=== PATIENT | male | born 1995 | race Caucasian/White ===

== ENCOUNTER 2016-10-16 06:41 | Inpatient (IN) | payer BC ==
[2016-10-16 08:33] LABS: Hematocrit 47 % (42-52); Hemoglobin 15.7 g/dl (14.0-18.0); Mean Corpuscular HGB Conc 33 g/dl (31-36); Mean Corpuscular Hemoglobin 28 pg (27-31); Mean Corpuscular Volume 86 fL (80-94); Mean Platelet Volume 9 um3 (7.4-10.4); Red Blood Count 5.53 10^6/ul (4.0-5.4); Red Cell Distribution Width 14 % (10.5-15); White Blood Count 7.9 10^3/ul (3.5-10.8)
[2016-10-16 08:53] LABS: ALT 18 U/L (7-52); AST 21 U/L (13-39); Albumin 4.7 g/dL (3.2-5.2); Alkaline Phosphatase 45 U/L (34-104); Anion Gap 10 mmol/L (2-11); BUN/Creatinine Ratio 18.2 (8-20); Blood Urea Nitrogen 14 mg/dL (6-24); CO2 Carbon Dioxide 24 mmol/L (22-32); Calcium 9.6 mg/dL (8.6-10.3); Chloride 101 mmol/L (101-111); EGFR African American 165.6 (>60); EGFR Non-African American 128.8 (>60); Globulin 2.7 g/dL (2-4); Glucose 125 mg/dL (70-100); Potassium 3.7 mmol/L (3.5-5.0); Sodium 135 mmol/L (133-145); Total Protein 7.4 g/dL (6.4-8.9)
[2016-10-16 08:56] LABS: Acetaminophen < 15 mcg/mL; Alcohol < 10 mg/dL (<10); Salicylate < 2.50 mg/dL (<30)
[2016-10-16 08:57] LABS: Benzodiazepine Urine Screen None Detected (None Detect); Urine Bacteria Absent (Absent); Urine Bilirubin Negative (Negative); Urine Glucose Negative (Negative); Urine Nitrite Negative (Negative)
[2016-10-16 09:03] LABS: TSH (Thyroid Stimulating Horm) 1.08 mcIU/mL (0.34-5.60)
[2016-10-16] MEDS ORDERED: Al Hydrox/Mg Hydrox/Simet LIQ* 30 ML UDC PO PRN (10:37)
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
[2016-10-16] MEDS ORDERED: diPHENhydraMINE PO* 50 MG ONE (18:08)
[2016-10-16] MEDS ORDERED: Haloperidol TAB* 5 MG ONE (18:08)
[2016-10-16] MEDS: Nicotine Inhaler* 10 MG AMP INH PRN (19:15)
[2016-10-16] MEDS ORDERED: Mouth Piece, Nicotine* 1 EACH CARTRIDGE ONE (19:15)
[2016-10-16] MEDS ORDERED: traZODone TAB* 50 MG TAB PO SCH (21:00)
[2016-10-17] MEDS: Acetaminophen TAB* 325 MG PO PRN (06:01)
[2016-10-17] MEDS: Vitamin THERAPEUTIC TAB PO SCH (09:23)
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
[2016-10-17] MEDS: chlorproMAZINE TAB* 100 MG PO PRN ×2 (14:04→19:54)
[2016-10-17] MEDS ORDERED: QUEtiapine TAB* 100 MG PO SCH (21:00)
[2016-10-17] MEDS ORDERED: diPHENhydraMINE PO* 50 MG PO PRN (22:52)
[2016-10-18] MEDS: chlorproMAZINE TAB* 100 MG PO PRN (00:15)
[2016-10-18] MEDS: Vitamin THERAPEUTIC TAB PO SCH (09:44)
[2016-10-18] MEDS: Nicotine Inhaler* 10 MG AMP INH PRN ×5 (10:48→20:59)
--- NOTE | 2016-10-18 11:49 | PN ---
Subjective - Subjective Service Type: 66982 Hosp care 25 min moderate complexity Subjective: Gene acknowledges manic symptoms. He agrees with idea of ongoing care at home at [facility], including inpatient stay there. He protests he has to continue admitted here for the time being, but reluctantly agrees to it. He refuses typical Bipolar treatments, but requests Thorazine (reasonably) - citing its calming effect. I reviewed its profile with him. We met with his mother, and provided her with an update on his status and plan. She supported the idea that he would, siri, go to [place] for care. She said he is argumentative by nature, but recognized that his symptoms this week were unprecedented and that he has been impaired. Objective - Appearance Appearance: Thin Framed Hygiene: Normal Grooming: Fairly Well Kept - Behavior Psychomotor Activities: Abnormal-Increased - Attitude and Relatedness Attitude and Relatedness: Minimally Cooperative Eye Contact: Good - Speech Quality: Unpressured Latencies: Short Quantity: Appropriate - Mood Patient's Decription of Mood: "Upset" - Affect Observed Affect: Labile - and expansive Affect Consistent with: Dysphoria - Thought Process Patient's Thought Process: Over Inclusive Thought Content: No Passive Wish, No Suicidal Planning, No Homicidal Ideation, No Paranoid Ideation - Sensorium Experiencing Hallucinations: No, Sensorium is Clear - Level of Consciousness Level of Consciousness: Alert - Impulse Control Impulse Control: Tenuous - Insight and Judgement Insight and Judgement: Poor Assessment - Assessment Merits Inpatient Hospitalization: For Immediate Safety, For Stabilization, To Initiate Treatment, For Ongoing Evaluation, Consolidate Improvements, For Discharge Planning, Pending Safe DC Plan Inpatient DSM-IV Dx: Bipolar disorder, mre manic. Cannabis use disorder. r.o. PTSD Clinical Impression: First psychiatric hospitalization for a 21-year-old male with a history of substance use disorder, previous evaluation with ADHD, who presents meeting criteria for bipolar manic episode, including extreme decrease in his amount of sleep, increased goal directed behavior, grandiosity, pressured speech, flight of ideas and financial indiscretion. This is in the setting of heavy levels of cannabis use and possible recent use of benzodiazepine and stimulant. Continues symptomatic and impaired/off baseline. May be making some progress with milder with manic affective features - slept 5 + hours last night. Continues with agitation/irritability, copious speech, over-inclusiveness. Medication management is with Thorazine - not typical moy treatment but probably very helpful and it is all Gene is interested in taking. Reasonable to plan for ongoing care at [facility] if pt. is accepted. Will not be an interstate transfer, rather a discharge-intake, so he will have to be stabilized and appropriate for ambulatory status. Assuming he makes more clinical progress, and consolidates his gains over a day or so, and has a followup plan in place, would anticipate discharge early next week. Plan - Plan Treatment Plan: Name: GENE MCCONNELL Birthdate: 1995 [id number] Continued Medication Management: Start Medication Medications: Current Medications Acetaminophen (Tylenol Tab*) 650 mg PO Q4H PRN PRN Reason: for pain; or Temp >101 F Last Admin: 10/17/16 06:01 Dose: 650 mg Al Hydrox/Mg Hydrox/Simethicone (Maalox Plus*) 30 ml PO Q4H PRN PRN Reason: INDIGESTION Chlorpromazine HCl (Thorazine Tab*) 100 mg PO Q3H PRN PRN Reason: AGITATION Last Admin: 10/18/16 00:15 Dose: 100 mg Diphenhydramine HCl (Benadryl Po*) 50 mg PO BEDTIME PRN PRN Reason: SLEEP Last Admin: 10/18/16 00:16 Dose: 50 mg Multivitamins (Theragran Tab*) 1 tab PO DAILY [facility] Last Admin: 10/18/16 09:44 Dose: Not Given Nicotine (Nicotine Inhaler*) 10 mg INH Q2H PRN PRN Reason: CRAVING Last Admin: 10/18/16 10:48 Dose: 10 mg Quetiapine Fumarate (Seroquel Tab*) 100 mg PO BEDTIME IGNACIA Last Admin: 10/17/16 19:55 Dose: Not Given - Discharge Plan Discharge Plan: Outpatient Follow Up
[2016-10-18] MEDS: chlorproMAZINE TAB* 50 MG PO SCH (21:26)
[2016-10-19] MEDS: Vitamin THERAPEUTIC TAB PO SCH (07:26)
[2016-10-19] MEDS: Nicotine Inhaler* 10 MG AMP INH PRN ×3 (09:10→16:48)
[2016-10-19] MEDS: Acetaminophen TAB* 325 MG PO PRN (15:35)
[2016-10-19] MEDS: chlorproMAZINE TAB* 50 MG PO SCH (21:25)
[2016-10-20] MEDS: chlorproMAZINE TAB* 50 MG PO PRN ×3 (01:36→19:14)
[2016-10-20] MEDS: Vitamin THERAPEUTIC TAB PO SCH (09:17)
[2016-10-20] MEDS: Acetaminophen TAB* 325 MG PO PRN (11:41)
[2016-10-20] MEDS: Nicotine Inhaler* 10 MG AMP INH PRN ×2 (11:41→15:49)
--- NOTE | 2016-10-20 13:05 | PN ---
Subjective - Subjective Subjective: I had the opportunity to visit Mr. Phelan today on follow-up. Today he discussed the circumstances leading up to his admission here at [facility]. He also discussed his goal of being discharged to the care of his mother so that he can continue treatment at the [facility]. He is reporting good sleep, however, was concerned that he had woken up at around 1:30 am with severe sweating. He states that this has happened before, but not consistently. Today, Mr. Phelan also asked if he could have access to the comfort room with computer privileges. Case reviewed with Dr. Jenkins. Objective - Appearance Dysmorphic Features: No Hygiene: Normal Grooming: Well Kept - Behavior Psychomotor Activities: Normal Exhibits Abnormal Movement: Yes - Attitude and Relatedness Attitude and Relatedness: Cooperative Eye Contact: Good - Speech Quality: Unpressured Latencies: Normal Quantity: Appropriate - Mood Patient's Decription of Mood: "Okay" - Affect Observed Affect: Good Affect Consistent with: Euthymia - Thought Process Patient's Thought Process: Coherent Thought Content: No Passive Wish, No Suicidal Planning, No Homicidal Ideation, No Paranoid Ideation - Sensorium Experiencing Hallucinations: No, Sensorium is Clear - Level of Consciousness Level of Consciousness: Alert Orientation: Yes Intact - Impulse Control Impulse Control: Intact - Insight and Judgement Insight and Judgement: Good - Today he acknowledged that his symptoms resulted from bipolar DO (untreated), and acknowledged "if this is my diagnosis, so be it , I will have to deal with it." - Group Participation Particating in Group Activities: Yes Assessment - Assessment Inpatient DSM-IV Dx: Bipolar disorder, mre manic. Cannabis use disorder. r.o. PTSD Clinical Impression: Mr. Phelan is a 21 year old male who apparently continues to improve with the current psychotropic regimen. He articulates a desire to continue treatment at the [facility]. Plan - Plan Treatment Plan: Name: GENE PHELAN Birthdate: 1995 [id number] Medications: Current Medications Acetaminophen (Tylenol Tab*) 650 mg PO Q4H PRN PRN Reason: for pain; or Temp >101 F Last Admin: 10/20/16 11:41 Dose: 650 mg Al Hydrox/Mg Hydrox/Simethicone (Maalox Plus*) 30 ml PO Q4H PRN PRN Reason: INDIGESTION Last Admin: 10/19/16 07:26 Dose: 30 ml Chlorpromazine HCl (Thorazine Tab*) 50 mg PO Q3H PRN PRN Reason: AGITATION Last Admin: 10/20/16 10:47 Dose: 50 mg Chlorpromazine HCl (Thorazine Tab*) 150 mg PO BEDTIME IGNACIA Last Admin: 10/19/16 21:25 Dose: 150 mg Multivitamins (Theragran Tab*) 1 tab PO DAILY [facility] Last Admin: 10/20/16 09:17 Dose: Not Given Nicotine (Nicotine Inhaler*) 10 mg INH Q2H PRN PRN Reason: CRAVING Last Admin: 10/20/16 11:41 Dose: 10 mg
[2016-10-20] MEDS: chlorproMAZINE TAB* 50 MG PO SCH (20:52)
[2016-10-21] MEDS: Acetaminophen TAB* 325 MG PO PRN (08:43)
[2016-10-21] MEDS: Vitamin THERAPEUTIC TAB PO SCH (08:43)
--- NOTE | 2016-10-21 09:49 | DS ---
Subjective - Subjective Service Types: [id number] [facility] Day Mgmt simple under 30 min Discharge Date: 10/21/16 Subjective: Reggie remained interested in release from the unit. He denies setbacks, reports "Great sleep", recognizes he was "manic" last week and estimates duration of moy was 7 days. He notes feeling "much calmer" and "in control" of his thoughts. He expressed appreciation for the intervention. We discussed medication (he opts to continue Thorazine) and aftercare (remains interested in going to [facility]. I advised him on symptoms to watch for. He has had tachycardia. Reggie reported that tachycardia has been present previously, and that he saw a [facility] [employer] [facility] in [place] this spring, had EKG and evaluation and the was told he did not have a problem. He declined an EKG. Objective - Appearance Appearance: Thin Framed Hygiene: Normal Grooming: Well Kept - Behavior Psychomotor Activities: Normal - Attitude and Relatedness Attitude and Relatedness: Appropriate Eye Contact: Good - Speech Quality: Unpressured Latencies: Normal Quantity: Appropriate - Mood Patient's Decription of Mood: "Good" - Affect Observed Affect: Tense Affect Consistent with: Euthymia - Thought Process Patient's Thought Process: Coherent, Goal Directed Thought Content: No Passive Wish, No Suicidal Planning, No Homicidal Ideation, No Paranoid Ideation - Sensorium Experiencing Hallucinations: No, Sensorium is Clear - Level of Consciousness Level of Consciousness: Alert - Impulse Control Impulse Control: Intact - Insight and Judgement Insight and Judgement: Good Treatment Course & Assessment Clinical Course & Impression: First psychiatric hospitalization for a 21-year-old male with a history of substance use disorder, previous evaluation with ADHD, who presents meeting criteria for bipolar manic episode, including extreme decrease in his amount of sleep, increased goal directed behavior, grandiosity, pressured speech, flight of ideas and financial indiscretion. This is in the setting of heavy levels of cannabis use and possible recent use of benzodiazepine and stimulant. 10/21/16: Clear for release. Reggie had substantial clinical improvement. Manic symptoms were progressively milder. His sleep recovered, with 5-6 hrs+ per night. He demonstrated progressive reduction in agitation/irritability, and full correction of pressured speech, disordered thinking, and grandiosity. Acute impairment is corrected. Medication management is with Thorazine - he refused typical moy treatments but found this helpful for agitation and insomnia. He had tachycardia, with HR ranging from 93-165 when measured. He reported it was subacute/chronic, and subject to a reassuring Cardiology evaluation in earlier 2017 (Dr. Morales, [facility]). No action is currently needed. Based on progress it is appropriate to release him on his request. Risk concern centered on his impairment and activating symptoms, and the potential for harm on that basis. The acute impairment is corrected and symptoms are reduced and risk is assessed as acceptable for outpatient status. Based on his history and conditions, Reggie may be at risk for future impairing mood episodes and therefore at elevated chronic risk for suicide and also violence. Clear for Discharge: Adequate Clinical Respons, Acceptable Safety Profile Inpatient DSM-IV Dx: Bipolar disorder, mre manic. Cannabis use disorder. r.o. PTSD Discharge Planning - Discharge Planning Discharge Plan: Outpatient Follow Up Outpatient Program: [facility] Recommendations for Continuing Care: Medication Management, Psychotherapy, Substance Abuse Counseling Medications: Current Medications Chlorpromazine HCl (Thorazine Tab*) 150 mg PO BEDTIME IGNACIA Last Admin: 10/20/16 20:52 Dose: 150 mg Nicotine (Nicotine Inhaler*) 10 mg INH Q2H PRN PRN Reason: CRAVING Last Admin: 10/20/16 15:49 Dose: 10 mg Discharge Planning: Prescriptions provided for discharge [x] Yes [x] No Follow up care details as per social work arrangements. Patient response to discharge plan: [x] eager for discharge [] agreeable with discharge plan [] ambivalent about discharge [] disagrees with discharge today
[2016-10-21] MEDS: Nicotine Inhaler* 10 MG AMP INH PRN (10:13)
[2016-10-21 10:31] VITALS: BP 147/67
== END 2016-10-21 11:15 | disposition home or self-care (01) | DRG 753 ==
LOC: ED 06:41 → BSU 13:46
PROVIDERS: ADMIT Psychiatry & Neurology Psychiatry; ATTEND Psychiatry & Neurology Psychiatry
DX: F31.10 Bipolar disorder, current episode manic without psychotic features, unspecified (principal); F12.10 Cannabis abuse, uncomplicated
CPT/HCPCS: 36415; 80053; 80307; 80320; 80329; 81003; 81015; 84443; 85025; 87086; 99222; 99231; 99232; 99238; A9270-GY; G0480